=== PATIENT | female | born 1965 | race Caucasian/White ===

== ENCOUNTER 2017-03-12 15:23 | Observation (INO) | payer MEDICAID ==
[2017-03-12] MEDS ORDERED: Sodium Chloride 0.9% 1,000 ML IV STA (15:54)
--- NOTE | 2017-03-12 16:14 | RAD ---
HISTORY: tachycardia COMPARISON: No prior. TECHNIQUE: Chest PA and lateral FINDINGS: LUNGS: No active pulmonary disease. PLEURA: No significant pleural effusion identified. No pneumothorax apparent. CARDIOVASCULAR: Normal. OSSEOUS STRUCTURES: No significant abnormalities. VISUALIZED UPPER ABDOMEN: Normal. OTHER FINDINGS: None. IMPRESSION: No active disease.
--- NOTE | 2017-03-12 16:20 | ED PDOC ---
HPI: Chest Pain Time Seen by Provider: 03/12/17 15:51 Chief Complaint (Nursing): Palpitations History Per: Patient History/Exam Limitations: no limitations Onset/Duration Of Symptoms: Mins (45) Current Symptoms Are (Timing): Still Present Quality: denies: Sharp, Dull, Aching, Tightness, Pressure, "Pain" Additional Complaint(s): 51 year old female presents with complaints of palpitations that began 45 minutes prior to arrival, that began while she was cleaning her house. Admits to having 'upset stomach', mild nausea. She denies dizziness, chest pain, chest pressure, dyspnea, abdominal pain, vomiting, diarrhea/constipation or pedal edema or calf tenderness. Endorses that her thyroid medication was recently increased, and she was recently started on alogliptin and januvia was discontinued. She endorses a significant unintentional weight loss in the past 3 weeks of 15lbs. Cardiac history: cardiac cath, echo, stress test in 2008. As per patient, results were normal. She has not followed up with Cardiology since then. PMH: DM type 2, hypothyroidism, hypertension Medications: Valsartan 160mg, Levothyroxine 425mg, Alogliptin 25mg Allergies: IODINE Social: denies tobacco, etoh, illicit drug use Surgical hx: cardiac cath in 2008 PMD: Joaquín Person Past Medical History Vital Signs: Last Vital Signs Temp 98.3 F 03/12/17 15:33 Pulse 123 H 03/12/17 15:33 Resp 18 03/12/17 15:33 BP 157/93 H 03/12/17 15:33 Pulse Ox 96 03/12/17 19:29 - Medical History PMH: Diabetes, HTN, Hypercholesterolemia, Hypothyroidism, Rheumatoid Arthritis - Home Medications Home Medications: Ambulatory Orders Medication Instructions Recorded Hydrochlorothiazide/Valsarta 1 tab PO DAILY 12/14/14 [Diovan Hct 12.5 mg-160 mg] Levothyroxine [Synthroid] 350 mcg PO DAILY 12/14/14 Sitagliptin Phosphate [Januvia] 100 mg PO DAILY 12/14/14 Sitagliptin Phosphate [Januvia] 100 mg PO DAILY 12/14/14 traMADol [Ultram] 1 tab PO Q6 PRN #10 tab 12/14/14 Ibuprofen 600 mg PO Q6 PRN #15 tablet 10/31/15 traMADol [Ultram] 50 mg PO Q6 PRN #15 tab 10/31/15 Ibuprofen [Motrin] 600 mg PO Q6 #20 tab 05/05/16 - Allergies Allergies/Adverse Reactions: Allergies Allergy/AdvReac Type Severity Reaction Status Date / Time iodine Allergy ANAPHYLAXIS Verified 05/05/16 20:44 shrimp Allergy ANAPHYLAXIS Verified 05/05/16 20:44 Wells Criteria for PE - Wells Criteria for Pulmonary Embolism Clinical Signs and Symptoms of DVT: No P.E is #1 Diagnosis, or Equally Likely: No Heart Rate >100: Yes Immobilization at least 3 days;Surgery previous 4 weeks: No Previous, objectively diagnosed PE or DVT: No Hemoptysis: No Malignancy w/treatment within 6 months, or palliative: No Total Score: 1.5 Review of Systems Constitutional: Negative for: Fever, Chills, Sweats Cardiovascular: Positive for: Palpitations. Negative for: Chest Pain, Edema, Light Headedness Respiratory: Negative for: Cough, Shortness of Breath, Pleuritic Pain Gastrointestinal: Positive for: Nausea. Negative for: Vomiting, Abdominal Pain , Diarrhea, Constipation Genitourinary Female: Negative for: Dysuria, Hematuria Skin: Negative for: Rash Neurological: Negative for: Weakness, Numbness, Altered Mental Status Physical Exam - Reviewed Vital Signs Reviewed: Yes (tachycardia, hypertension) - Physical Exam Appears: Positive for: Uncomfortable Skin: Positive for: Normal Color, Warm, Dry. Negative for: Diaphoresis, Pallor , Rash Eye Exam: Positive for: Normal appearance Cardiovascular/Chest: Positive for: Regular Rate, Rhythm, Chest Non Tender, Murmur, Tachycardia. Negative for: Edema, JVD Respiratory: Positive for: Normal Breath Sounds. Negative for: Crackles, Rales , Rhonchi, Wheezing, Respiratory Distress Gastrointestinal/Abdominal: Positive for: Bowel Sounds, Soft. Negative for: Tenderness, Distended Back: Positive for: Normal Inspection Rectal: Positive for: Deferred Neurologic/Psych: Positive for: Alert, professor of communication II-XII, Oriented. Negative for: Motor/Sensory Deficits - Laboratory Results Result Diagrams: 03/12/17 17:05 03/12/17 17:05 - ECG ECG Rhythm: Positive for: Normal QRS, Normal ST Segment, Sinus Rhythm, Sinus Tachycardia O2 Sat by Pulse Oximetry: 96 - Progress ED Course And Treament: 51 year old female with sinus tachycardia, possible thyroid storm. * EKG: SINUS TACHYCARDIA * CBC * CMP * TSH * T4 * TROPONIN * UA * URINE C&S * IVF Case d/w Dr. Henderson, who agrees with the assessment and plan delineated above. 18:00 Reassessed pt. HR 100s, BP 160/80s. Pepcid given. Feels better. * Valsartan 160mg * IVF running * will reassess 18:45: TSH : <0.02, T4: 23.4 Patient condition not improved. Will admit to hospital. D/w Joaquín Person D/w Dr. Henderson Disposition - Clinical Impression Clinical Impression: Thyroid toxicity, exogenous - Disposition Disposition Time: 19:30 Condition: FAIR - Pt Status Changed To: Hospital Disposition Of: Observation
[2017-03-12 17:17] LABS: SQUAMOUS EPITHIAL 3 /hpf (0-5); URINE BACTERIA FEW (<OCC); URINE BILIRUBIN NEGATIVE (NEGATIVE); URINE BLOOD NEGATIVE (NEGATIVE); URINE CLARITY SLIGHTY-CLOUDY (Clear); URINE COLOR YELLOW (YELLOW); URINE GLUCOSE (UA) NEG (Normal); URINE LEUKOCYTE ESTERASE NEG Leu/uL (Negative); URINE NITRATE NEGATIVE (NEGATIVE); URINE PROTEIN 100 mg/dL (NEGATIVE); URINE UROBILINOGEN 0.2-1.0 mg/dL (0.2-1.0)
[2017-03-12 17:24] LABS: BASO % 0.1 % (0.0-2.0); EOS % 0.1 % (0.0-4.0); HEMOGLOBIN 12.6 g/dL (12.0-16.0); LYMPH % 10.4 % (20.0-40.0); MEAN CELL VOLUME 81.2 fl (81.0-99.0); MEAN CORPUSCULAR HEMOGLOBIN 26.1 pg (27.0-31.0); MEAN CORPUSCULAR HGB CONC 32.1 g/dL (33.0-37.0); MEAN PLATELET VOLUME 9.5 fl (7.2-11.7); MONO # 0.6 K/uL (0.0-0.8); MONO % 5.8 % (0.0-10.0); NEUT # 8.3 K/uL (1.8-7.0); NEUT % 83.6 % (50.0-75.0); RBC 4.81 Mil/uL (3.80-5.20); RED CELL DISTRIBUTION WIDTH 15.1 % (11.5-14.5)
[2017-03-12 17:26] LABS: ALB/GLOB RATIO 1.1 (1.0-2.1); ALBUMIN 4.7 g/dL (3.5-5.0); ALT/SGPT 67 U/L (9-52); AST/SGOT 36 U/L (14-36); BLOOD UREA NITROGEN 16 mg/dl (7-17); CALCIUM 10.1 mg/dL (8.4-10.2); GFR AFRICAN-AMERICAN > 60; GFR NON-AFRICAN AMERICAN > 60
[2017-03-12 17:42] LABS: T4 23.4 ug/dl (5.5-11.0)
[2017-03-12] MEDS ORDERED: Alum-Mag Hydrox-Simethicone Susp (30 mL) PO PRN (21:46)
[2017-03-12] MEDS: Sodium Chloride 0.9% 1,000 ML IV SCH (23:00)
[2017-03-13 06:58] LABS: BASO % 0.4 % (0.0-2.0); EOS # 0.1 K/uL (0.0-0.7); EOS % 1.4 % (0.0-4.0); HEMOGLOBIN 11.2 g/dL (12.0-16.0); LYMPH # 1.9 K/uL (1.0-4.3); LYMPH % 40.3 % (20.0-40.0); MEAN CELL VOLUME 79.6 fl (81.0-99.0); MEAN CORPUSCULAR HEMOGLOBIN 26.1 pg (27.0-31.0); MEAN CORPUSCULAR HGB CONC 32.8 g/dL (33.0-37.0); MEAN PLATELET VOLUME 9.4 fl (7.2-11.7); MONO # 0.4 K/uL (0.0-0.8); MONO % 8.5 % (0.0-10.0); NEUT # 2.3 K/uL (1.8-7.0); NEUT % 49.4 % (50.0-75.0); NRBC % 0.1 % (0.0-0.0); RBC 4.29 Mil/uL (3.80-5.20); RED CELL DISTRIBUTION WIDTH 15.1 % (11.5-14.5); WHITE BLOOD COUNT 4.7 K/uL (4.8-10.8)
[2017-03-13 07:11] LABS: ALB/GLOB RATIO 1.1 (1.0-2.1); ALBUMIN 3.8 g/dL (3.5-5.0); ALT/SGPT 63 U/L (9-52); AST/SGOT 37 U/L (14-36); BLOOD UREA NITROGEN 12 mg/dl (7-17); CALCIUM 9.5 mg/dL (8.4-10.2); GFR AFRICAN-AMERICAN > 60; GFR NON-AFRICAN AMERICAN > 60
[2017-03-13] MEDS: Sodium Chloride 0.9% 1,000 ML IV SCH (08:00)
--- NOTE | 2017-03-13 11:32 | CP.PCM.HP ---
History of Present Illness - History of Present Illness History of Present Illness: pt admitted for palpitationsa nd epigastric pain and found to have abn low tsh after taking 425mcg synthroid aily, was on same dose for 1yr but was taking qod. no f/c, n/v/d. bw nad imaging noted. relief w/ toradol Present on Admission - Present on Admission Any Indicators Present on Admission: No Review of Systems - Cardiovascular Cardiovascular: As Per HPI, Palpitations - Gastrointestinal Gastrointestinal: As Per HPI, Dyspepsia Past Patient History - Past Social History Smoking Status: Never Smoked - CARDIAC Hx Cardiac Disorders: Yes - PULMONARY Hx Respiratory Disorders: No - NEUROLOGICAL Hx Neurological Disorder: No - HEENT Hx HEENT Problems: No - RENAL Hx Chronic Kidney Disease: No - ENDOCRINE/METABOLIC Hx Endocrine Disorders: Yes - HEMATOLOGICAL/ONCOLOGICAL Hx Blood Disorders: No - INTEGUMENTARY Hx Dermatological Problems: No - MUSCULOSKELETAL/RHEUMATOLOGICAL Hx Musculoskeletal Disorders: No - GENITOURINARY/GYNECOLOGICAL Hx Genitourinary Disorders: No - PSYCHIATRIC Hx Psychophysiologic Disorder: No - ANESTHESIA Hx Anesthesia: No Hx Anesthesia Reactions: No Meds Allergies/Adverse Reactions: Allergies Allergy/AdvReac Type Severity Reaction Status Date / Time iodine Allergy ANAPHYLAXIS Verified 05/05/16 20:44 shrimp Allergy ANAPHYLAXIS Verified 05/05/16 20:44 Physical Exam - Constitutional Appears: Well, Non-toxic - Head Exam Head Exam: ATRAUMATIC, NORMAL INSPECTION, NORMOCEPHALIC - Eye Exam Eye Exam: EOMI, Normal appearance, PERRL Pupil Exam: NORMAL ACCOMODATION, PERRL - ENT Exam ENT Exam: Mucous Membranes Moist, Normal Exam - Neck Exam Neck exam: Positive for: Normal Inspection - Respiratory Exam Respiratory Exam: Clear to Auscultation Bilateral, NORMAL BREATHING PATTERN - Cardiovascular Exam Cardiovascular Exam: REGULAR RHYTHM, RRR, +S1, +S2 - GI/Abdominal Exam GI & Abdominal Exam: Normal Bowel Sounds, Soft. absent: Tenderness - Extremities Exam Extremities exam: Positive for: full ROM, normal capillary refill, normal inspection, pedal pulses present - Back Exam Back exam: NORMAL INSPECTION - Neurological Exam Neurological exam: Alert, CN II-XII Intact, Normal Gait, Oriented x3, Reflexes Normal - Psychiatric Exam Psychiatric exam: Normal Affect, Normal Mood - Skin Skin Exam: Dry, Intact, Normal Color, Warm Results - Vital Signs Recent Vital Signs: Last Vital Signs Temp 97.7 F 07/21/17 04:38 Pulse 76 03/13/17 09:00 Resp 20 03/13/17 04:38 BP 143/82 03/13/17 04:38 Pulse Ox 98 03/13/17 04:38 - Labs Result Diagrams: 03/13/17 05:00 03/13/17 05:00 Labs: Laboratory Results - last 24 hr 03/12/17 03/12/17 03/13/17 21:02 23:22 05:00 WBC 4.7 L D RBC 4.29 Hgb 11.2 L Hct 34.2 MCV 79.6 L MCH 26.1 L MCHC 32.8 L RDW 15.1 H Plt Count 223 MPV 9.4 Neut % (Auto) 49.4 L Lymph % (Auto) 40.3 H [place] % (Auto) 8.5 Eos % (Auto) 1.4 Baso % (Auto) 0.4 Neut # 2.3 Lymph # 1.9 [place] # 0.4 Eos # 0.1 Baso # 0.0 Sodium Potassium Chloride Carbon Dioxide Anion Gap BUN Creatinine Est GFR ( Amer) Est GFR (Non-Af Amer) POC Glucose (mg/dL) 138 H 90 Random Glucose Calcium Total Bilirubin AST ALT Alkaline Phosphatase Total Protein Albumin Globulin Albumin/Globulin Ratio Free T4 Thyroxine (T4) TSH 3rd Generation 03/13/17 03/13/17 03/13/17 05:00 05:00 05:20 WBC RBC Hgb Hct MCV MCH MCHC RDW Plt Count MPV Neut % (Auto) Lymph % (Auto) [place] % (Auto) Eos % (Auto) Baso % (Auto) Neut # Lymph # [place] # Eos # Baso # Sodium 144 Potassium 3.7 Chloride 110 H Carbon Dioxide 25 Anion Gap 13 BUN 12 Creatinine 0.6 L Est GFR ( Amer) > 60 Est GFR (Non-Af Amer) > 60 POC Glucose (mg/dL) 101 Random Glucose 118 H Calcium 9.5 Total Bilirubin 0.6 AST 37 H ALT 63 H Alkaline Phosphatase 87 Total Protein 7.2 Albumin 3.8 Globulin 3.4 Albumin/Globulin Ratio 1.1 Free T4 2.59 H Thyroxine (T4) 18.0 H TSH 3rd Generation 0.03 L Assessment & Plan (1) Epigastric pain Assessment and Plan: toradol prn, maalox, pepcid cardio Status: Acute (2) DVT prophylaxis Assessment and Plan: scd and aehose ambulation Status: Acute (3) Thyroid toxicity, exogenous Assessment and Plan: hod synthroid ivf endo counselling on dosing Status: Acute Decision To Admit - Pt Status Changed To: Hospital Disposition Of: Observation - . Bed Request Type: Telemetry Admitting Physician: Kita Cope
--- NOTE | 2017-03-13 11:35 | CP.PCM.PN ---
Subjective - Date & Time of Evaluation Date of Evaluation: 03/13/17 Time of Evaluation: 11:34 - Subjective Subjective: w/o compalints. no f/,c n/v/d. penidng endo/cardio consults labs noted. tsha nd t4 noted. Objective - Vital Signs/Intake and Output Vital Signs (last 24 hours): Temp Pulse Resp BP Pulse Ox 97.7 F 76 20 143/82 98 03/13/17 04:38 03/13/17 09:00 03/13/17 04:38 03/13/17 04:38 03/13/17 04:38 - Medications Medications: Current Medications Al Hydrox/Mg Hydrox/Simethicone (Maalox Plus 30 Ml) 30 ml PO Q6 PRN PRN Reason: Indigestion / Heartburn Famotidine (Pepcid) 20 mg IVP Q12 [facility] Last Admin: 03/13/17 08:48 Dose: 20 mg Sodium Chloride (Sodium Chloride 0.9%) 1,000 mls @ 100 mls/hr IV .Q10H [facility] Stop: 03/13/17 21:47 Last Admin: 03/13/17 08:00 Dose: 100 mls/hr Ketorolac Tromethamine (Toradol) 30 mg IVP Q6 PRN PRN Reason: pain 5-10 Valsartan (Diovan) 160 mg PO DAILY [facility] Last Admin: 03/13/17 08:48 Dose: 160 mg - Labs Labs: 03/13/17 05:00 03/13/17 05:00 - Constitutional Appears: Well, Non-toxic, No Acute Distress - Head Exam Head Exam: ATRAUMATIC, NORMAL INSPECTION, NORMOCEPHALIC - Eye Exam Eye Exam: EOMI, Normal appearance, PERRL Pupil Exam: NORMAL ACCOMODATION, PERRL - ENT Exam ENT Exam: Mucous Membranes Moist, Normal Exam - Neck Exam Neck Exam: Full ROM, Normal Inspection. absent: Lymphadenopathy - Respiratory Exam Respiratory Exam: Clear to Ausculation Bilateral, NORMAL BREATHING PATTERN - Cardiovascular Exam Cardiovascular Exam: REGULAR RHYTHM, RRR, +S1, +S2. absent: Murmur - GI/Abdominal Exam GI & Abdominal Exam: Soft, Normal Bowel Sounds. absent: Tenderness - Extremities Exam Extremities Exam: Full ROM, Normal Capillary Refill, Normal Inspection. absent : Joint Swelling, Pedal Edema - Back Exam Back Exam: NORMAL INSPECTION - Neurological Exam Neurological Exam: Alert, Awake, CN II-XII Intact, Normal Gait, Oriented x3 - Psychiatric Exam Psychiatric exam: Normal Affect, Normal Mood - Skin Skin Exam: Dry, Intact, Normal Color, Warm Assessment and Plan (1) Epigastric pain Status: Acute (2) DVT prophylaxis Status: Acute (3) Thyroid toxicity, exogenous Status: Acute - Assessment and Plan (Free Text) Assessment: (1) Epigastric pain Assessment and Plan: toradol prn, maalox, pepcid cardio Status: Acute (2) DVT prophylaxis Assessment and Plan: scd and aehose ambulation Status: Acute (3) Thyroid toxicity, exogenous Assessment and Plan: hod synthroid ivf endo counselling on dosing Status: Acute
[2017-03-13 16:14] VITALS: BP 152/93; PULSE 77; RESP 16; TEMP 98.3; O2SAT 96
--- NOTE | 2017-03-13 17:29 | CP.PCM.CON ---
History of Present Illness - History of Present Illness History of Present Illness: I was asked to evaluate patient by Joaquín Person and Dr Cope. Patient is a 51 year old female with PMH hypothyroidism who presents wtih palpitations. The patient was taking high dose thryoid replacement intermittently, but began taking it daily. She reports fluttering of the chest. She denies syncope. Review of Systems - Constitutional Constitutional: absent: As Per HPI, Anorexia, Chills, Daytime Sleepiness, Excessive Sweating, Fatigue, Fever, Frequent Falls, Headache, Increased Appetite , Lethargy, Malaise, Night Sweats, Snoring, Sleep Apnea, Weight Gain, Weight Loss, Weakness, Other - EENT Eyes: absent: As Per HPI, Blind Spots, Blurred Vision, Change in Vision, Decreased Night Vision, Diplopia, Discharge, Dry Eye, Exophthalmos, Floaters, Irritation, Itchy Eyes, Loss of Peripheral Vision, Pain, Photophobia, Requires Corrective Lenses, Sees Flashes, Spots in Vision, Tunnel Vision, Other Visual Disturbances, Loss of Vision, Other Ears: absent: As Per HPI, Decreased Hearing, Ear Discharge, Ear Pain, Tinnitus, Abnormal Hearing, Disequilibrium, Dizziness, Other Nose/Mouth/Throat: absent: As Per HPI, Epistaxis, Nasal Congestion, Nasal Discharge, Nasal Obstruction, Nasal Trauma, Nose Pain, Post Nasal Drip, Sinus Pain, Sinus Pressure, Bleeding Gums, Change in Voice, Dental Pain, Dry Mouth, Dysphagia, Halitosis, Hoarsness, Lip Swelling, Mouth Lesions, Mouth Pain, Odynophagia, Sore Throat, Throat Swelling, Tongue Swelling, Facial Pain, Neck Pain, Neck Mass, Other - Breasts Breasts: absent: As Per HPI, Change in Shape, Mass, Pain, Nipple Discharge, Nipple Inversion, Skin Changes, Swelling, Other - Cardiovascular Cardiovascular: Palpitations - Respiratory Respiratory: absent: As Per HPI, Cough, Dyspnea, Hemoptysis, Dyspnea on Exertion , Wheezing, Snoring, Stridor, Pain on Inspiration, Chest Congestion, Excessive Mucous Production, Change in Mucous Color, Pain with Coughing, Other - Gastrointestinal Gastrointestinal: absent: As Per HPI, Abdominal Pain, Belching, Bloating, Change in Bowel Habits, Change in Stool Character, Coffee Ground Emesis, Constipation, Cramping, Diarrhea, Dyspepsia, Dysphagia, Early Satiety, Excessive Flatus, Fecal Incontinence, Heartburn, Hematemesis, Hematochezia, Loose Stools, Melena, Nausea, Odynophagia, Temesmus, Vomiting, Other - Genitourinary Genitourinary: absent: As Per HPI, Change in Urinary Stream, Difficulty Urinating, Dysuria, Flank Pain, Hematuria, Pyuria, Nocturia, Urinary Incontinence, Urinary Frequency, Urinary Hesitance, Urinary Urgency, Voiding Freq/Small Amts, Freq UTI, Hx Renal/Bladder Calculi, Hx /Renal Surgery, Bladder Distension, Other - Musculoskeletal Musculoskeletal: absent: As Per HPI, Abnormal Gait, Arthralgias, Atrophy, Back Pain, Deformity, Joint Swelling, Limited Range of Motion, Loss of Height, Muscle Cramps, Muscle Weakness, Myalgias, Neck Pain, Numbness, Radiating Pain into Limb, Stiffness, Tingling, Other - Integumentary Integumentary: absent: As Per HPI, Acne, Alopecia, Bleeding Lesions, Change in Hair, Change in Nails, Change in Pigmentation, Changing Lesions, Dry Skin, Erythema, Furuncle, Hirsutism, Lesions, New Lesions, Non-Healing Lesions, Photosensitivity, Pruritus, Rash, Skin Pain, Skin Ulcer, Sores, Striae, Swelling , Unusual Bruising, Wounds, Jaundice, Other - Neurological Neurological: absent: As Per HPI, Abnormal Gait, Abnormal Hearing, Abnormal Movements, Abnormal Speech, Behavioral Changes, Burning Sensations, Confusion, Convulsions, Disequilibrium, Dizziness, Numbness, Focal Weakness, Frequent Falls , Headaches, Lack of Coordination, Loss of Vision, Memory Loss, Paresthesias, Radicular Pain, Restless Legs, Sensory Deficit, Syncope, Tingling, Tremor, Vertigo, Weakness, Other Visual Disturbances, Other - Psychiatric Psychiatric: absent: As Per HPI, Abnormal Sleep Pattern, Anhedonia, Anxiety, Auditory Hallucinations, Behavioral Changes, Change in Appetite, Change in Libido, Confusion, Depression, Difficulty Concentrating, Hallucinations, Homicidal Ideation, Hopelessness, Irritability, Memory Loss, Mood Swings, Panic Attacks, Paranoia, Suicidal Ideation, Visual Hallucinations, Tactile Hallucinations, Other - Endocrine Endocrine: absent: As Per HPI, Change in Body Appearance, Change in Libido, Cold Intolorance, Deepening of Voice, Excessive Sweating, Fatigue, Flushing, Heat Intolorance, Increase in Ring/Shoe/Hat Size, Palpitations, Polydipsia, Polyphagia, Polyuria, Other - Hematologic/Lymphatic Hematologic: absent: As Per HPI, Easy Bleeding, Easy Bruising, Lymphadenopathy, Other Past Patient History - Past Social History Smoking Status: Never Smoked - CARDIAC Hx Cardiac Disorders: Yes - PULMONARY Hx Respiratory Disorders: No - NEUROLOGICAL Hx Neurological Disorder: No - HEENT Hx HEENT Problems: No - RENAL Hx Chronic Kidney Disease: No - ENDOCRINE/METABOLIC Hx Endocrine Disorders: Yes - HEMATOLOGICAL/ONCOLOGICAL Hx Blood Disorders: No - INTEGUMENTARY Hx Dermatological Problems: No - MUSCULOSKELETAL/RHEUMATOLOGICAL Hx Musculoskeletal Disorders: No - GENITOURINARY/GYNECOLOGICAL Hx Genitourinary Disorders: No - PSYCHIATRIC Hx Psychophysiologic Disorder: No - ANESTHESIA Hx Anesthesia: No Hx Anesthesia Reactions: No Meds Allergies/Adverse Reactions: Allergies Allergy/AdvReac Type Severity Reaction Status Date / Time iodine Allergy ANAPHYLAXIS Verified 05/05/16 20:44 shrimp Allergy ANAPHYLAXIS Verified 05/05/16 20:44 Physical Exam - Constitutional Appears: Non-toxic - Head Exam Head Exam: NORMAL INSPECTION - Eye Exam Eye Exam: Normal appearance - ENT Exam ENT Exam: Mucous Membranes Moist - Neck Exam Neck exam: Positive for: Full Rom - Respiratory Exam Respiratory Exam: NORMAL BREATHING PATTERN - Cardiovascular Exam Cardiovascular Exam: REGULAR RHYTHM - GI/Abdominal Exam GI & Abdominal Exam: Normal Bowel Sounds - Rectal Exam Rectal Exam: Deferred - Extremities Exam Extremities exam: Positive for: pedal pulses present - Back Exam Back exam: NORMAL INSPECTION - Neurological Exam Neurological exam: Alert, Oriented x3 - Psychiatric Exam Psychiatric exam: Normal Affect - Skin Skin Exam: Intact Results - Vital Signs Recent Vital Signs: Last Vital Signs Temp 98.3 F 03/13/17 16:13 Pulse 77 03/13/17 16:13 Resp 16 03/13/17 16:13 BP 152/93 H 03/13/17 16:13 Pulse Ox 96 03/13/17 16:13 - Labs Result Diagrams: 03/13/17 05:00 03/13/17 05:00 Labs: Laboratory Results - last 24 hr 03/12/17 03/12/17 03/13/17 21:02 23:22 05:00 WBC 4.7 L D RBC 4.29 Hgb 11.2 L Hct 34.2 MCV 79.6 L MCH 26.1 L MCHC 32.8 L RDW 15.1 H Plt Count 223 MPV 9.4 Neut % (Auto) 49.4 L Lymph % (Auto) 40.3 H [place] % (Auto) 8.5 Eos % (Auto) 1.4 Baso % (Auto) 0.4 Neut # 2.3 Lymph # 1.9 [place] # 0.4 Eos # 0.1 Baso # 0.0 Sodium Potassium Chloride Carbon Dioxide Anion Gap BUN Creatinine Est GFR ( Amer) Est GFR (Non-Af Amer) POC Glucose (mg/dL) 138 H 90 Random Glucose Calcium Total Bilirubin AST ALT Alkaline Phosphatase Total Protein Albumin Globulin Albumin/Globulin Ratio Free T4 Thyroxine (T4) TSH 3rd Generation 03/13/17 03/13/17 03/13/17 05:00 05:00 05:20 WBC RBC Hgb Hct MCV MCH MCHC RDW Plt Count MPV Neut % (Auto) Lymph % (Auto) [place] % (Auto) Eos % (Auto) Baso % (Auto) Neut # Lymph # [place] # Eos # Baso # Sodium 144 Potassium 3.7 Chloride 110 H Carbon Dioxide 25 Anion Gap 13 BUN 12 Creatinine 0.6 L Est GFR ( Amer) > 60 Est GFR (Non-Af Amer) > 60 POC Glucose (mg/dL) 101 Random Glucose 118 H Calcium 9.5 Total Bilirubin 0.6 AST 37 H ALT 63 H Alkaline Phosphatase 87 Total Protein 7.2 Albumin 3.8 Globulin 3.4 Albumin/Globulin Ratio 1.1 Free T4 2.59 H Thyroxine (T4) 18.0 H TSH 3rd Generation 0.03 L 03/13/17 11:28 WBC RBC Hgb Hct MCV MCH MCHC RDW Plt Count MPV Neut % (Auto) Lymph % (Auto) [place] % (Auto) Eos % (Auto) Baso % (Auto) Neut # Lymph # [place] # Eos # Baso # Sodium Potassium Chloride Carbon Dioxide Anion Gap BUN Creatinine Est GFR ( Amer) Est GFR (Non-Af Amer) POC Glucose (mg/dL) 104 Random Glucose Calcium Total Bilirubin AST ALT Alkaline Phosphatase Total Protein Albumin Globulin Albumin/Globulin Ratio Free T4 Thyroxine (T4) TSH 3rd Generation - EKG Data EKG Interpreted by: Myself Assessment & Plan (1) Palpitations Assessment and Plan: likely due to hyperthyroidism. 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 will schedule outpatient holter monitor and echocardiogram Status: Acute (2) Thyroid toxicity, exogenous Assessment and Plan: cause of palpitations. Status: Acute
--- NOTE | 2017-03-14 14:36 | CP.PCM.DIS ---
Provider - Provider Date of Admission: 03/12/17 19:25 Attending physician: Kita Cope MD Time Spent in preparation of Discharge (in minutes): 15 Diagnosis - Discharge Diagnosis (1) Epigastric pain Status: Acute (2) DVT prophylaxis Status: Acute (3) Thyroid toxicity, exogenous Status: Acute Hospital Course - Lab Results Lab Results: Most Recent Lab Values WBC 4.7 K/uL (4.8-10.8) L D 03/13/17 05:00 RBC 4.29 Mil/uL (3.80-5.20) 03/13/17 05:00 Hgb 11.2 g/dL (12.0-16.0) L 03/13/17 05:00 Hct 34.2 % (34.0-47.0) 03/13/17 05:00 MCV 79.6 fl (81.0-99.0) L 03/13/17 05:00 MCH 26.1 pg (27.0-31.0) L 03/13/17 05:00 MCHC 32.8 g/dL (33.0-37.0) L 03/13/17 05:00 RDW 15.1 % (11.5-14.5) H 03/13/17 05:00 Plt Count 223 K/uL (130-400) 03/13/17 05:00 MPV 9.4 fl (7.2-11.7) 03/13/17 05:00 Neut % (Auto) 49.4 % (50.0-75.0) L 03/13/17 05:00 Lymph % (Auto) 40.3 % (20.0-40.0) H 03/13/17 05:00 [place] % (Auto) 8.5 % (0.0-10.0) 03/13/17 05:00 Eos % (Auto) 1.4 % (0.0-4.0) 03/13/17 05:00 Baso % (Auto) 0.4 % (0.0-2.0) 03/13/17 05:00 Neut # 2.3 K/uL (1.8-7.0) 03/13/17 05:00 Lymph # 1.9 K/uL (1.0-4.3) 03/13/17 05:00 [place] # 0.4 K/uL (0.0-0.8) 03/13/17 05:00 Eos # 0.1 K/uL (0.0-0.7) 03/13/17 05:00 Baso # 0.0 K/uL (0.0-0.2) 03/13/17 05:00 Sodium 144 mmol/l (132-148) 03/13/17 05:00 Potassium 3.7 MMOL/L (3.6-5.0) 03/13/17 05:00 Chloride 110 mmol/L (98-107) H 03/13/17 05:00 Carbon Dioxide 25 mmol/L (22-30) 03/13/17 05:00 Anion Gap 13 (10-20) 03/13/17 05:00 BUN 12 mg/dl (7-17) 03/13/17 05:00 Creatinine 0.6 mg/dL (0.7-1.2) L 03/13/17 05:00 Est GFR ( Amer) > 60 03/13/17 05:00 Est GFR (Non-Af Amer) > 60 03/13/17 05:00 POC Glucose (mg/dL) 92 mg/dL (65-110) 03/13/17 16:12 Random Glucose 118 mg/dL (65-105) H 03/13/17 05:00 Calcium 9.5 mg/dL (8.4-10.2) 03/13/17 05:00 Total Bilirubin 0.6 mg/dl (0.2-1.3) 03/13/17 05:00 AST 37 U/L (14-36) H 03/13/17 05:00 ALT 63 U/L (9-52) H 03/13/17 05:00 Alkaline Phosphatase 87 U/L (38-126) 03/13/17 05:00 Troponin I 0.0160 ng/mL (0.00-0.120) 03/12/17 17:05 Total Protein 7.2 G/DL (6.3-8.2) 03/13/17 05:00 Albumin 3.8 g/dL (3.5-5.0) 03/13/17 05:00 Globulin 3.4 gm/dL (2.2-3.9) 03/13/17 05:00 Albumin/Globulin Ratio 1.1 (1.0-2.1) 03/13/17 05:00 Free T4 2.59 ng/dL (0.78-2.19) H 03/13/17 05:00 Thyroxine (T4) 18.0 ug/dl (5.5-11.0) H 03/13/17 05:00 TSH 3rd Generation 0.03 mIU/ML (0.46-4.68) L 03/13/17 05:00 Urine Color Yellow (YELLOW) 03/12/17 17:05 Urine Clarity Slighty-cloudy (Clear) 03/12/17 17:05 Urine pH 5.0 (5.0-8.0) 03/12/17 17:05 Ur Specific [place] 1.027 (1.003-1.030) 03/12/17 17:05 Urine Protein 100 mg/dL (NEGATIVE) 03/12/17 17:05 Urine Glucose (UA) Neg mg/dL (Normal) 03/12/17 17:05 Urine Ketones Trace mg/dL (NEGATIVE) 03/12/17 17:05 Urine Blood Negative (NEGATIVE) 03/12/17 17:05 Urine Nitrate Negative (NEGATIVE) 03/12/17 17:05 Urine Bilirubin Negative (NEGATIVE) 03/12/17 17:05 Urine Urobilinogen 0.2-1.0 mg/dL (0.2-1.0) 03/12/17 17:05 Ur Leukocyte Esterase Neg [place]/uL (Negative) 03/12/17 17:05 Urine RBC (Auto) 4 /hpf (0-3) H 03/12/17 17:05 Urine Microscopic WBC 3 /hpf (0-5) 03/12/17 17:05 Ur Squamous Epith Cells 3 /hpf (0-5) 03/12/17 17:05 Urine Bacteria Few (<OCC) H 03/12/17 17:05 Hyaline Casts 3-5 /hpf (0-2) H 03/12/17 17:05 Discharge Exam - Head Exam Head Exam: ATRAUMATIC, NORMAL INSPECTION, NORMOCEPHALIC Discharge Plan - Follow Up Plan Condition: FAIR Disposition: HOME/ ROUTINE Instructions: Hyperthyroidism (DC) Additional Instructions: CALL ON THURSDAY FOR F/U APPOINTMENT. F/U CARDIOLOGY APPOINTMENT WITH FOR OUTPATIENT [facility] MONITORING.TEL # [phone] F/U APPOINTMENT WITH cleared by cardio/endo final dx-thyroid intox, palpitations rted prn, meds per med rec, no sytnrhoid
--- NOTE | 2017-03-16 09:09 | CON ---
ENDOCRINOLOGY CONSULT ROOM: 407. HISTORY OF PRESENT ILLNESS: This is the 51-year-old female with known history of hypothyroidism and apparently developed sudden onset of palpitations with supervening precordial chest pain and associated dizziness and light headedness prompting this ER consult and subsequent admission. PAST MEDICAL HISTORY: History of hypothyroidism, currently on a high dose levothyroxine replacement therapy with Synthroid taken as 425 mcg once daily as noted. History of hypertension and dyslipidemia, history of type II diabetes, currently on alogliptin taken as 25 mg once daily. History of upper and lower back pain with associated lumbar disc disease. FAMILY HISTORY: Positive for hypertension and diabetes. SOCIAL HISTORY: The patient has supportive family. No known substance use. REVIEW OF SYSTEMS: As mentioned above, admits to generalized body weakness with easy fatigability, tiredness and suboptimal energy level. Also admits to dizziness and light headedness, worsened on the day of admission. Also admits to precordial chest pain with supervening palpitations, especially on exertion with no overt paroxysmal nocturnal dyspnea, although admits to dyspnea at rest as noted. Her oral intake has been valuable and suboptimal with nausea, dyspepsia and vague upper abdominal pains; also admits to lower extremity paresthesias, specially nocturnally. PHYSICAL EXAMINATION GENERAL: This is an average built female in no apparent distress with a blood pressure of 160/100, pulse of 100 beats per minute, regular temperature 98, respirations 20, height is 5.2, weight is 175 pounds. HEENT: Head: Normocephalic. Eyes: Anicteric with pink conjunctivae. Funduscopy not possible at this time. Ears, nose and throat otherwise normal. NECK: Supple. Thyroid gland shows nodular thyromegaly with no overt nodules or masses note. No any cervical adenopathy. HEART: Adynamic precardium. S1, S2 is rapid and regular. LUNGS: Scattered rhonchi. ABDOMEN: Flat, soft with positive bowel sounds. EXTREMITIES: No peripheral edema. Pulses are +2 bilaterally. LABORATORY DATA: Chemistries showed a BUN of 16, sodium 144, potassium 4.2, chloride 107, CO2 23, glucose 150, and creatinine 0.5. Her glucose levels have ranged from 90 to 138 mg/dL. Her total T4 level is 23.4 with a TSH of less than 0.02. ASSESSMENT AND PLAN: This is a 51-year-old female with overt drug induced hyperthyroxinemia, presenting here with palpitations, precordial chest pain and accelerated hypertension as noted. 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 There is no overt thyromegaly or possible thyroid nodules at this time. Plan of management is discussed with the patient and the staff. We will modify her current levothyroxine replacement therapy to a much lower dose of 200 mcg once daily. It takes a full week for a complete therapeutic wash out of the medications from her system. We will obtain a thyroid peroxidase and thyroglobulin antibody *------* underlying autoimmunity. We will obtain a hemoglobin A1c *------* glycemic control and based on *------*status will be ordered and adjust her dose regimen accordingly. We will follow up her. Vale Pyle MD
== END 2017-03-13 17:27 | disposition home or self-care (01) ==
LOC: H.ER 15:23 → H.ERHOLD 19:25 → H.TEL 22:35
PROVIDERS: ADMIT Family Medicine; ATTEND Family Medicine
DX: E05.90 Thyrotoxicosis, unspecified without thyrotoxic crisis or storm (principal); E06.3 Autoimmune thyroiditis; E11.9 Type 2 diabetes mellitus without complications; E03.9 Hypothyroidism, unspecified; E78.5 Hyperlipidemia, unspecified; I10 Essential (primary) hypertension; R10.13 Epigastric pain; M06.9 Rheumatoid arthritis, unspecified; E78.00 Pure hypercholesterolemia, unspecified